=== PATIENT | female | born 1970 | race Caucasian/White ===

== ENCOUNTER 2018-01-17 08:57 | Outpatient (REF) | payer BC, SELFPAY ==
--- NOTE | 2018-01-17 08:45 | PAPFT_PTH ---
PATIENT: Khloe June [id number] AGE/SX: 47/F ROOM: RE01/17/[address]: Fred De León V : 1970 BED: DIS: 01/17/2018 SPEC #: [id number] RECD: 01/18/18 12:46 STATUS: NADEGE REBerta #: [id number] KRYTSYNA: 01/17/18 08:[address]: Fred De León V DEPT: [facility] Cytology RECD BY: Nuria Macdonald ENTERED: 01/18/18 12:47 SP TYPE: PAPFT OTHR DR: Jordon Chacko Tissues: 1 - CX/ENDOCX FOR PAP SMEARS Procedures: PAP THIN PREP/UVM Screening HPV DNA PROBE Comments: [id number]
== END 2018-01-17 09:17 ==
LOC: NCHCN 08:57
PROVIDERS: PCP Internal Medicine; Visit Provider Physician Assistant Medical
DX: Z12.4 Encounter for screening for malignant neoplasm of cervix (principal); Z01.419 Encounter for gynecological examination (general) (routine) without abnormal findings
CPT/HCPCS: 88142; 87624

== ENCOUNTER 2018-01-26 08:57 | Outpatient (CLI) | payer BC, SELFPAY ==
--- NOTE | 2018-01-26 12:40 | DI.US_ITS ---
SYMPTOMS/DIAGNOSIS: VAGINAL MASS, N89.8, RIGHT LOWER QUADRANT ABDOMINAL PAIN X 3 WEEKS, RESOLVING, R01.31 PELVIC ULTRASOUND: Transabdominal and transvaginal examination was performed. The uterus is enlarged and heterogeneous with several uterine masses. The largest is seen in the fundus and measures 7.4 x 4.5 x 6.9 cm, likely reflecting a fibroid. The endometrial stripe is within normal limits at 1 cm. There is a 1.1 x 1.1 x 0.8 cm isoechoic mass seen in the fundal endometrium. Both ovaries were visualized. They are normal in size and appearance. There is normal blood flow to the ovaries. No evidence of torsion is seen. No suspicious ovarian masses are present. There is a small amount of free fluid in the pelvis. No hydronephrosis is seen. IMPRESSION: 1. Enlarged fibroid uterus. 2. A 1.1 cm isoechoic mass seen in the fundal endometrium. Differential considerations include a polyp, endometrial mass or submucosal fibroid.
== END 2018-01-26 09:17 ==
PROVIDERS: PCP Internal Medicine; Visit Provider Physician Assistant Medical
DX: N89.8 Other specified noninflammatory disorders of vagina (principal); D25.9 Leiomyoma of uterus, unspecified; N85.2 Hypertrophy of uterus; R10.31 Right lower quadrant pain; N85.8 Other specified noninflammatory disorders of uterus
CPT/HCPCS: 76830; 76856

== ENCOUNTER → 2020-03-14 18:54 | Outpatient (REF) | payer BC, SELFPAY ==
[2020-03-14 16:55] LABS: Bilirubin Negative (Negative); Blood Moderate (Negative); Clarity Sl Cloudy (Clear); Glucose Negative (Negative); Ketones 80 mg/dL (Negative); Leukocyte Esterase Negative (Negative); Nitrite Positive (Negative); Specific Gravity >= 1.030 (1.005-1.025); Urobilinogen 0.2 EU/dL (Up TO 0.2)
[2020-03-14 17:07] LABS: Bacteria Rare HPF (Negative); Epithelial Cells Few HPF (Negative); RBC >50 HPF (0-2); WBC 0-2 HPF (0-5)
[2020-03-14 17:08] LABS: C & S Indicated? C&S Done As Ordered; Casts 0-2 Hyaline LPF (Negative); Crystals Few Amorphous HPF (Negative); Mucus Negative (Negative)
== END ==
LOC: NCHCN 18:54
PROVIDERS: PCP Internal Medicine; Visit Provider Internal Medicine
DX: N30.00 Acute cystitis without hematuria (principal)
CPT/HCPCS: 81003; 81015; 87086

== ENCOUNTER 2023-04-08 18:53 | Outpatient (REF) | payer BC, SELFPAY ==
[2023-04-08 18:46] LABS: HCT 38.6 % (36.0-46.0); MCH 30.5 pg (27.0-33.0); MCHC 33.7 % (32.0-36.0); MCV 91 fL (80-95); MPV 10.1 fL (8.0-11.0); Platelet Count 226 10^3/uL (130-400); RBC 4.26 10^6/uL (3.93-5.22); RDW 12.6 % (11.7-14.6); RDW-SD 41.8 fL; WBC 6.22 10^3/uL (4.4-10.8)
[2023-04-08 19:07] LABS: ALT 22 U/L (14-59); AST 17 U/L (15-37); Alkaline Phosphatase 58 U/L (46-116); Anion Gap 6.4 mmol/L (3-11); BUN 9 mg/dL (7-18); Bilirubin, Total 0.5 mg/dL (0.2-1.0); CO2 30.6 mmol/L (21.0-32.0); CREATININE 0.6 mg/dL (0.55-1.02); Calcium 8.9 mg/dL (8.5-10.1); Calculated LDL 82 mg/dL (<100); Chloride 105 mmol/L (98-107); Cholesterol 190 mg/dL (<200); Estimated GFR 107.26 (mL/min/1.73m2); Glucose 85 mg/dL (74-106); HDL Cholesterol 92 mg/dL (40-60); Potassium 4.3 mmol/L (3.5-5.1); Sodium 142 mmol/L (136-145); Total Protein 7.3 g/dL (6.4-8.2); Triglyceride 81 mg/dL (<150)
== END 2023-04-08 18:54 | disposition home or self-care (01) ==
LOC: NCHCN 18:53
PROVIDERS: PCP Internal Medicine; Visit Provider Physician Assistant
DX: Z00.00 Encounter for general adult medical examination without abnormal findings (principal)
CPT/HCPCS: 80053; 80061; 85027

== ENCOUNTER 2023-09-14 11:05 | Outpatient (CLI) | payer BC, SELFPAY ==
--- NOTE | 2023-09-14 10:15 | DI.RAD_ITS ---
Exam(s) XR FEMUR LT EXAM: XR FEMUR LT CLINICAL HISTORY: LEFT THIGHT PAIN. TECHNIQUE: 2D digital imaging was performed. AP and lateral views COMPARISON: None. FINDINGS: BONES: No acute fracture is present. No bony destructive lesion is seen. JOINTS: No dislocation present. Hip and knee joints unremarkable. SOFT TISSUE: Normal. IMPRESSION: Negative left femur. DATA REPOSITORY: RADIATION DOSE DELIVERED:
== END 2023-09-14 11:06 | disposition home or self-care (01) ==
LOC: DIORS 11:06
PROVIDERS: PCP Internal Medicine; Visit Provider Student in an Organized Health Care Education/Training Program
DX: M79.652 Pain in left thigh (principal)
CPT/HCPCS: 73552

== ENCOUNTER 2023-10-10 02:31 | Outpatient (CLI) | payer BC, SELFPAY ==
--- NOTE | 2023-10-10 08:11 | DI.MRI_ITS ---
Exam(s) MR LOWER EXTREMITY LT WO EXAM: MR LOWER EXTREMITY LT WO CLINICAL HISTORY: left thigh pain,traumatic rupture lt hamstring tendon, s76.312a TECHNIQUE: Multiplanar multisequence MRI of Pelvis was performed COMPARISON: CR XR FEMUR LT from 09/14/2023 FINDINGS: The field of view includes the hips through the knees. Bones: There is no fracture or contusion pattern. No significant joint effusion is present. No bone marrow edema is seen. Joints: The hip joints and knee joints are unremarkable as visualized. Musculotendinous structures: Edema in the left hamstring muscle as well as some fluid surrounding th e tendon. Waviness of the hamstring tendon in the mid thigh. The left hamstring tendon is detached from the ischial tuberosity and retracted. No hematoma or fluid collection. Intrapelvic structures demonstrate no significant abnormality. IMPRESSION: Full-thickness tear with retraction of the left hamstring tendon. Edema and some fluid within the spence mstring muscle. DATA REPOSITORY:
== END 2023-10-10 02:51 ==
PROVIDERS: PCP Internal Medicine; Visit Provider Student in an Organized Health Care Education/Training Program
DX: S76.312A Strain of muscle, fascia and tendon of the posterior muscle group at thigh level, left thigh, initial encounter (principal); X58.XXXA Exposure to other specified factors, initial encounter
CPT/HCPCS: 73718